=== PATIENT | female | born 1975 | race African-American/Black ===

== ENCOUNTER 2018-11-09 18:54 | Observation (INO) | payer MEDICAID ==
[~2018-11-09] VITALS: Ht 157.5 cm; Wt 64.1 kg
--- NOTE | ~2018-11-09 | HEMODYNAMI ---
PATIENT:SANTIAGO CEBALLOS MEDICAL RECORD: [id number] : 71 [facility] ADMISSION DATE: 11/09/18 Generatedon:11/10/201811:32 Patient name: SANTIAGO CEBALLOS Patient #: [id number] SSN: [id number] : 1975 Date of study: 11/10/2018 Page: Of Hemodynamic Procedure Report Patient Data Patient Demographics Procedure consent was obtained First Name: SANTIAGO Gender: Female Last Name: TUCKER : 1975 Patient #: [id number] Age: 42 year(s) Race: Black SSN: [id number] Additional ID: [id number] Contact details [address]: [address] [place] [address] State: [place] City: [place] Zip code: [address] Admission Admission Data Admission Date: 11/09/2018 Admission Time: 19:37 Admit Source: Emergency Insurance Payor: Medicaid department Room #: D.2114 Height (in.): 62 BSA: 1.65 (m2) Height (cm.): 157.48 BMI: 25.79 (kg/m2) Weight (lbs.): 141 Weight (kg.): 63.96 Procedure Procedure Types Cath Procedure Diagnostic Procedure [facility] w/Coronaries Procedure Description Procedure Date Procedure Date: 11/10/2018 Procedure Start Time: 11:16 Procedure End Time: 11:30 Procedure Staff Name Function Leopoldo Becerra MD Performing Physician Michelle Gonzales RT Monitor [place] RT Scrub Cesario Vaughan RT Scrub Denisse Pimentel RN Nurse Procedure Data Cath Procedure Fluoroscopy Diagnostic fluoroscopy Total fluoroscopy Time: 2.8 time: 2.8 min min Diagnostic fluoroscopy Total fluoroscopy dose: 366 dose: 366 mGy mGy Contrast Material Contrast Material Type Amount (ml) Isovue 300 73 Entry Location Entry Primary Successful Side Size Upsize Upsize Entry Closure Succes sful Closure Location (Fr) 1 (Fr) 2 (Fr) Remarks Device Remarks Femoral Right 5 Fr Exoseal artery Estimated blood loss: 10 ml Diagnostic catheters Device Type Used For End Catheter Placement MULTIPACK JL 4.0 5Fr Procedure catheter MULTIPACK 3DRC 5Fr Procedure catheter MULTIPACK Pigtail 5 Fr Procedure catheter Procedure Complications No complications Procedure Medications Medication Administration Route Dosage Oxygen etCO2 Nasal cannula 2 l/min Lidocaine 2% added to field 20 Heparin Flush Bag added to field 2 bags (1000units/500ml NS) 0.9% NaCl I.V. 100 ml/hr Versed I.V. 1 mg Fentanyl I.V. 50 mcg Versed I.V. 1 mg Fentanyl I.V. 50 mcg Versed I.V. 0.5 mg Hemodynamics Rest BSA: 1.65 (m2) O2 Consumption: Estimated: 168.18 (ml/min) O2 Consumption indexed : Estimated:101.93 (ml/min/m) Heart Rate: 75 (bpm) Pressure Samples Time Site Value (mmHg) Purpose Heart Use Rate(bpm) 11:25 LV 127/5,19 Snapshot 93 11:26 AO 124/81(100) Pullback 92 11:26 LV 137/8,23 Pullback 92 Gradients Valve Time Site 1 Site 2 Mean SEP/DFP Peak To Heart Use (mmHg) (sec/min) Peak Rate (mmHg) (bpm) Aortic 11:26 LV AO 14 22 13 92 137/8,23 124/81(100) Calculations Valve P-P Mean Valve Index Valve Source Name Gradient Area Flow (cm2) Aortic 13 14 13 14 Snapshots Pre Cath Intra NCS Post Cath Vital Signs Time Heart Resp SPO2 etCO2 NIBP (mmHg) Rhythm Pain Sedation Rate (ipm) (%) (mmHg) Status Level (bpm) 11:04:11 69 12 100 0 139/88(103) NSR 0 (11) 10(A) , No pain 11:08:21 76 16 100 37.4 141/85(126) NSR 0 (11) 10(A) , No pain 11:12:37 86 12 99 39.6 120/82(97) NSR 0 (11) 10(A) , No pain 11:18:37 91 10 99 40.4 123/84(100) NSR 0 (11) 9(A) , No pain 11:22:41 91 14 98 41.9 125/91(102) NSR 0 (11) 9(A) , No pain 11:26:47 90 13 98 42.6 124/90(105) NSR 0 (11) 9(A) , No pain 11:30:40 90 13 99 41.9 127/82(114) NSR 0 (11) 10(A) , No pain Medications Time Medication Route Dose Verified Delivered Reason Notes Eff ectiveness by by 11:09:10 Oxygen etCO2 2 Leopoldo Buffie used for Nasal l/min Hernan Pimentel RN procedure cannula 11:09:17 Lidocaine 2% added 20ml Leopoldo Leopoldo for local to vial Hernan Becerra MD anesthetic field 11:09:24 Heparin Flush added 2 Leopoldo Leopoldo used for Bag to bags Hernan Becerra MD procedure (1000units/500ml field NS) 11:09:33 0.9% NaCl I.V. 100 Leopoldo Buffie Per ml/hr Hernan Pimentel RN physician 11:09:44 Versed I.V. 1 mg Leopoldo Buffie for Hernan Pimentel RN sedation 11:09:50 Fentanyl I.V. 50 Leopoldo Buffie for mcg Hernan Pimentel RN sedation 11:15:22 Versed I.V. 1 mg Leopoldo Buffie for Hernan Pimentel RN sedation 11:15:25 Fentanyl I.V. 50 Leopoldo Buffie for mcg Hernan Pimentel RN sedation 11:22:55 Versed I.V. 0.5 Leopoldo Buffie for mg Hernan Pimentel RN sedation Procedure Log Time Note 10:21:38 Signed procedure consent form obtained from patient. 10:21:40 Procedure Status Urgent Heart Cath (IP). 10:21:42 Time tracking: Regular hours (M-F 7:00 - 5:00) 10:21:46 Plan of Care:Hemodynamics will remain stable., Cardiac rhythm will remain stable., Comfort level will be maintained., Respiratory function will remain adequate., Patient/ family verbilizes understanding of procedure., Procedure tolerated without complication., Recovers from procedure without complications.. 10:22:54 Admit Source: Emergency department 10:23:02 Insurance Payor : Medicaid 10:23:24 Patient Height : 62 inches 10:23:25 Patient Weight : 141 lbs 10:53:08 Denisse Pimentel RN sent for patient. Start room use. 11:01:05 Patient received from Med II to CCL 1 Alert and oriented. Tansferred to table in Supine position. 11:01:06 Warm blankets applied, and rivas hugger turned on for patient comfort. 11:01:07 Correct patient and procedure confirmed by team. 11:01:07 ECG and BP/O2 sat monitors applied to patient. 11:03:06 Vital chart was started 11:04:49 Baseline sample Acquired. 11:04:52 Rhythm: sinus rhythm 11:04:53 Full Disclosure recording started 11:05:10 H&P Date Dictated: 11/10/2018 Within 30 days and on chart.. 11:05:17 Pre-procedure instructions explained to patient. 11:05:17 Pre-op teaching completed and patient verbalized understanding. 11:05:19 Family unavailable. 11:05:20 Patient NPO since Midnight. 11:05:22 Is the patient allergic to Iodine/contrast media? No. 11:05:24 Is patient on blood thinner?No 11:05:29 ACC The patient was administered the following blood thiners within the last 24 hours: None 11:05:59 Patient diabetic? No. 11:06:13 HCG/Urine : completed and on chart, negative 11:06:15 Previous problem with sedation/anesthesia? No ? 11:06:16 Snore? Yes 11:06:18 Sleep apnea? No 11:06:18 Deviated septum? No 11:06:19 Opens mouth fully? Yes 11:06:20 Sticks out tongue? Yes 11:06:22 Airway obstruction? No ? 11:06:24 Dentures? No ? 11:06:27 Pre procedure: right dorsailis pedis pulse 1+ Palpable, but thready & weak; easily obliterated 11:06:31 Patient pain scale 0/10 ?. 11:07:26 UNABLE TO GO RADIAL DUE TO IV IN RIGHT WRIST. 11:07:31 IV patent on arrival in right wrist with 0.9% NaCl at O. 11:07:33 Lab results completed and on chart. 11:07:37 Right groin area was prepped with chlora-prep and draped in sterile fashion 11:07:39 Alarms reviewed by R. N. 11:07:40 Sharps counted by scrub and verified by R.N. 11:07:41 --------ALL STOP TIME OUT------ 11:07:42 Final Timeout: patient, procedure, and site verified with staff and physician. All members of the team are in agreement. 11:07:43 Right groin site verified by team. 11:07:46 Fire Safety Assessment: A--An alcohol-based skin anteseptic being used preoperatively., C--Open oxygen or nitrous oxide is being used., D--An ESU, laser, or fiber-optic light is being used. 11:08:01 Physical assessment completed. ASA score P 2 - A patient with mild systemic disease as per Leopoldo Becerra MD. 11:08:24 Sedation plan: IV Moderate Sedation Medication:Versed, Fentanyl 11:09:10 Oxygen 2 l/min etCO2 Nasal cannula was administered by Denisse Pimentel RN; used for procedure; 11:09:17 Lidocaine 2% 20ml vial added to field was administered by Leopoldo Becerra MD; for local anesthetic; 11:09:24 Heparin Flush Bag (1000units/500ml NS) 2 bags added to field was administered by Leopoldo Becerra MD; used for procedure; 11:09:33 0.9% NaCl 100 ml/hr I.V. was administered by Denisse Pimentel RN; Per physician; 11:09:44 Versed 1 mg I.V. was administered by Denisse Pimentel RN; for sedation; 11:09:50 Fentanyl 50 mcg I.V. was administered by Denisse Pimentel RN; for sedation; 11:15:22 Versed 1 mg I.V. was administered by Denisse Pimentel RN; for sedation; 11:15:25 Fentanyl 50 mcg I.V. was administered by Denisse Pimentel RN; for sedation; 11:16:13 Procedure started. 11:16:18 Local anesthetic to right femoral artery with Lidocaine 2% by Leopoldo Becerra MD.INITIAL ACCESS ONLY 11:16:34 Use device set Femoral Dx 11:16:36 ACIST Syringe (84510) opened to sterile field. 11:16:36 Bag Decanter () opened to sterile field. 11:16:37 ACIST Manifold (79471) opened to sterile field. 11:16:38 ACIST Hand Control (19499) opened to sterile field. 11:16:39 Tegaderm 4 x 4 (1626W) opened to sterile field. 11:16:40 Medline Cath Pack ([id number]) opened to sterile field. 11:16:41 DIAGNOSTIC Multipack 5Fr catheter set ([id number]) opened to sterile field. 11:16:42 SHEATH 5FR [place] (EBZ673) opened to sterile field. 11:16:42 EMERALD Guide Wire (502-596) opened to sterile field. 11:16:50 Zero performed for pressure channel P1 11:19:16 A 5 Fr sheath was inserted into the Right Femoral artery 11:20:01 A MULTIPACK JL 4.0 5Fr catheter was advanced over the wire and used for Procedure. 11:21:43 LCA angiography performed. 11:22:30 Catheter exchanged over wire. 11:22:55 Versed 0.5 mg I.V. was administered by Denisse Pimentel RN; for sedation; 11:23:43 A MULTIPACK 3DRC 5Fr catheter was advanced over the wire and used for Procedure. 11:23:54 RCA angiography performed. 11:23:56 Catheter exchanged over wire. 11:24:17 A MULTIPACK Pigtail 5 Fr catheter was advanced over the wire and used for Procedure. 11:24:34 LV gram done using ERNST 11:24:36 Injector settings: Ml/sec: 10, Volume: 20, 11:25:36 LV hemodynamics recorded. 11:25:52 EF : 45 % 11:27:03 Catheter removed. 11:27:38 EXOSEAL 5Fr (EX500) opened to sterile field. 11:28:19 Sheath removed intact; hemostasis achieved with Exoseal to the Right Femoral artery. 11:28:40 Procedure ended.(Physican Out) 11:28:50 Fluoroscopy time 02.80 minutes. 11:28:54 Fluoroscopy dose: 366 mGy 11:28:54 Flurop Dose total: 366 11:29:02 Dose Area Product 69089 mGy/cm. 11:29:06 Contrast amount:Isovue 300 73ml. 11:29:09 Maximum allowable dose exceeded? No. 11:29:11 Sharps counted by scrub and verified by R.N. 11:29:15 Post-op/insertion site Right Femoral artery dressed using a 4 x 4 and Tegaderm. 11:29:18 Post-procedure physical assessment completed. ASA score P 2 - A patient with mild systemic disease as per Leopoldo Becerra MD. 11:29:26 Post procedure rhythm: sinus rhythm 11:29:28 Estimated blood loss: 10 ml 11:29:30 Post procedure instruction explained to patient.Patient verbalizes understanding. 11:29:31 Patient needs reinforcement of post procedure teaching. 11:30:19 Procedure and supply charges have been captured, reviewed, submitted and are correct. 11:30:22 Procedure Complication : No complications 11:30:24 Vital chart was stopped 11:30:24 See physician's report for complete and final results. 11:30:26 Report given to PCU. 11:30:29 Patient transfered to PCU with Bed. 11:30:31 Procedure ended. 11:30:31 Full Disclosure recording stopped 11:30:35 End room use (Document Last) Device Usage Item Name Manufacture Quantity Catalog Hospital Part Current Minimal L ot# / Number Charge Number Stock Stock Serial# Code ACIST Acist 1 98323 038130 807805 793723 20 Syringe Medical (99628) Systems Inc Bag Microtek 1 2001S 838186 73006 070246 5 Decanter Medical Inc. () ACIST Acist 1 86256 198046 534482 856659 5 Manifold Medical (18121) Systems Inc ACIST Hand Acist 1 52642 499022 675773 154630 5 Control Medical (61069) Systems Inc Tegaderm 4 3M 1 1626W 553073 245383 848473 5 x 4 (1626W) Medline Medline 1 [id number] 535699 58076 409786 5 Cath Pack ([id number]) DIAGNOSTIC Cardinal 1 IV7140 659347 79320 801657 30 Multipack Health 5Fr catheter set (HP3516) SHEATH 5FR Terumo 1 WBI786 148259 317276 614368 5 [place] (TQJ217) EMERALD Cardinal 1 502-455 334688 276565 595500 5 Guide Wire Health (502-957) MULTIPACK Cardinal 1 763336 5 JL 4.0 5Fr Health catheter MULTIPACK Cardinal 1 932688 5 3DRC 5Fr Health catheter MULTIPACK Cardinal 1 024932 5 Pigtail 5 Health Fr catheter EXOSEAL 5Fr Cardinal 1 EX500 644474 470950 307018 10 (EX500) Health Signature Audit [facility] Stage Time Signature Unsigned Intra-Procedure 11/10/2018 Michelle Gonzales 11:32:41 AM RT(R) Signatures Performing Physician : Signature : Leopoldo Becerra MD Date : Time : Monitor : Michelle Gonzales Signature : RT Date : Time : Nurse : Buffie Pimentel RN Signature : Date : Time : [place] [address] [place] [address]
[2018-11-09] MEDS ORDERED: BP PILL (18:59)
[2018-11-09 19:00] VITALS: BP 136/82
[2018-11-09 19:33] VITALS: BP 159/89
[2018-11-09 19:38] VITALS: BP 145/94
[2018-11-09 19:50] VITALS: BP 127/85
[2018-11-09 19:55] LABS: CKMB 0.2 U/L (0.0-3.6); CREATINE KINASE 74 UL (21-215); TROPONIN-I < 0.017 ng/mL (0.000-0.060)
[2018-11-09] MEDS ORDERED: NORVASC5 MG PO (21:49)
[2018-11-09] MEDS ORDERED: NEURONTIN 300300 MG PO (21:50)
[2018-11-10] VITALS: BP 131/76
[2018-11-10 02:24] LABS: CKMB 0.2 U/L (0.0-3.6); CREATINE KINASE 62 UL (21-215); TROPONIN-I < 0.017 ng/mL (0.000-0.060)
[2018-11-10 03:17] VITALS: BP 146/82; Ht 157.5 cm; Wt 64.1 kg
[2018-11-10 07:55] LABS: BASOPHILS 0.2 % (0-2); EOSINOPHILS 3.9 % (0-7); HEMATOCRIT 40.3 % (36.0-48.0); HEMOGLOBIN 13.7 g/dL (12-16); IMMATURE GRANULOCYTES 0.6 % (0-5); LYMPHOCYTES 40.7 % (15-50); MCH 29.3 pg (26.0-34.0); MCV 86.1 fL (80.0-100.0); MEAN PLATELET VOLUME 11.2 fL (7.4-10.4); NEUTROPHILS 47.6 % (40-80); PLATELET COUNT 317 10x3/uL (130-400); RBC 4.68 10x6/uL (4.00-5.40); RDW 15.3 % (11.5-14.5); WBC 8.6 10x3/uL (4.8-10.8)
[2018-11-10 08:20] LABS: AMYLASE - SERUM 43 U/L (25-115); CALC OSMOLALITY 279 mosm/kg (275-300); CALCIUM 8.6 mg/dL (8.5-10.1); CARBON DIOXIDE 20.7 mmol/L (21.0-32.0); CHLORIDE - SERUM 104 mmol/L (98-107); CKMB 0.3 U/L (0.0-3.6); CREATINE KINASE 66 UL (21-215); CREATININE - SERUM 0.6 mg/dL (0.6-1.3); GLUCOSE 277 mg/dL (74-106); LIPASE 116 U/L (73-393); MAGNESIUM - SERUM 1.8 mg/dL (1.8-2.4); PHOSPHOROUS 3.6 mg/dL (2.5-4.9); POTASSIUM - SERUM 4.6 mmol/L (3.5-5.1); SODIUM 136 mmol/L (136-145); UREA NITROGEN 8 mg/dL (7-18); eGFR NON AFRICAN AMERICAN > 90 mL/min (90-120)
[2018-11-10 08:22] LABS: TROPONIN-I < 0.017 ng/mL (0.000-0.060)
[2018-11-10 08:55] VITALS: BP 103/67
[2018-11-10 10:45] LABS: HCG SERUM NEGATIVE (NEGATIVE)
[2018-11-10] MEDS ORDERED: GLIPIZIDE10 MG PO (13:08)
[2018-11-10] MEDS ORDERED: Nicoderm [PBKC] TRANSDERM (13:08)
[2018-11-10] MEDS ORDERED: ATIVAN1 MG PO (13:09)
--- NOTE | 2018-11-10 17:04 | MORECARE ---
CASE MANAGEMENT DISCHARGE SUMMARY PATIENT: SANTIAGO CEBALLOS UNIT: [id number] ADM DATE: 11/09/18 AGE: 42 : [birth year] SEX: F ROOM/BED: D.2034 AUTHOR: JEANNETTE CLOUD PHYSICIAN: REFERRING PHYSICIAN: LUIS M ZAMBRANO DO DATE OF SERVICE: 11/10/18 Discharge Plan Patient Name: SANTIAGO CEBALLOS [facility] [facility] 1975 Planned Disposition: Left Against Medical Advice Anticipated Discharge Date: 11/10/18 Discharge Date: 11/10/2018 Expected LOS: 1 Initial Reviewer: [email or web address] Initial Review Date: 11/10/2018 Generated: 11/10/18 6:03 pm Patient Name: SANTIAGO CEBALLOS Page [id number] at 1704 All edits/amendments must be made on the electronic document DICTATION DATE: 11/10/181702 ASPHALT HEATER OPERATOR: LTARELL 11/10/181702 RPT#: [id number] DC DATE:11/10/18 STATUS: DIS IN [facility] [address] [place] [address] END OF REPORT
== END 2018-11-10 14:34 | disposition home or self-care (01) ==
LOC: D.ER 18:54 → OBSVTIME 19:37 → D.M2 19:37
PROVIDERS: Emergency Medicine; Internal Medicine Cardiovascular Disease; ADMIT Family Medicine; ATTEND Family Medicine
DX: I21.4 Non-ST elevation (NSTEMI) myocardial infarction (principal); I25.110 Atherosclerotic heart disease of native coronary artery with unstable angina pectoris; E11.65 Type 2 diabetes mellitus with hyperglycemia; F17.203 Nicotine dependence unspecified, with withdrawal; I73.9 Peripheral vascular disease, unspecified; I10 Essential (primary) hypertension; F41.9 Anxiety disorder, unspecified